=== PATIENT | female | born 1970 | race Caucasian/White ===

== ENCOUNTER 2017-01-14 11:33 | Day surgery (SDC) | payer OTHER ==
[~2017-01-14] VITALS: Ht 149.9 cm; Wt 113.6 kg
[2017-01-14] MEDS ORDERED: ZIAC 10-6.25 MG1 TAB PO (15:51)
[2017-01-14] MEDS ORDERED: DEXILANT60 MG PO (15:51)
[2017-01-14] MEDS ORDERED: CYMBALTA60 MG PO (15:52)
[2017-01-14] MEDS ORDERED: ESTRACE1 MG PO (15:52)
[2017-01-14 16:04] VITALS: BP 186/92; Ht 149.9 cm; Wt 113.6 kg
[2017-01-14 16:29] LABS: BASOPHILS 0.1 % (0-2); HEMATOCRIT 34.8 % (36.0-48.0); HEMOGLOBIN 11.4 g/dL (12-16); IMMATURE GRANULOCYTES 0.3 % (0-5); LYMPHOCYTES 34.6 % (15-50); MCH 27.7 pg (26.0-34.0); MCHC 32.8 g/dL (31.0-37.0); MCV 84.7 fL (80.0-100.0); MONOCYTES 5.4 % (2-11); NEUTROPHILS 56.6 % (40-80); PLATELET COUNT 250 10x3/uL (130-400); RBC 4.11 10x6/uL (4.00-5.40); WBC 7.4 10x3/uL (4.8-10.8)
[2017-01-14 16:39] LABS: CALC OSMOLALITY 279 mosm/kg (275-300); CARBON DIOXIDE 29.8 mmol/L (21.0-32.0); CHLORIDE - SERUM 104 mmol/L (98-107); CREATININE - SERUM 0.6 mg/dL (0.6-1.3); GLUCOSE 81 mg/dL (74-106); POTASSIUM - SERUM 4.1 mmol/L (3.5-5.1); SODIUM 142 mmol/L (136-145); UREA NITROGEN 8 mg/dL (7-18); eGFR NON AFRICAN AMERICAN > 90 mL/min (90-120)
[2017-01-14] MEDS ORDERED: MOBIC7.5 MG PO (17:25)
--- NOTE | 2017-01-14 18:45 | NUR ---
RIGHT HAND PIV DC'D WITH TIP INTACT, PATIENT DRESSING IN PERSONAL CLOTHING
--- NOTE | 2017-01-14 18:55 | NUR ---
DISCHARGE INSTRUCTIONS REVIEWED WITH PATIENT AND SPOUSE, PATIENT DISCHARGED HOME VIA WHEELCHAIR TO PRIVATE VEHICLE WITH SPOUSE
--- NOTE | 2017-01-16 15:58 | OP ---
PATIENT NAME: DUSTIN GARCIA MEDICAL RECORD: [id number] :68 LOCATION:[facility] ADMISSION DATE: SURGEON: LEON HALE DO DATE OF OPERATION: 01/14/2017 DATE OF PROCEDURE: 01/14/2017. PROCEDURE: Colonoscopy. INDICATIONS: Hematochezia and rectal pain. SCOPE: Olympus video pediatric colonoscope. MEDICATIONS: Propofol 350 mg IV per anesthesia. ESTIMATED BLOOD LOSS: None. COMPLICATIONS: None. WITHDRAWAL TIME: 6 minutes. FINDINGS: Informed consent was given. The patient was made comfortable with the above medication. After reaching an adequate level of sedation by slow IV push, the patient was placed on her left side. A digital rectal examination was performed, and was normal. The endoscope was then advanced under direct visualization through the anus to the terminal ileum. The scope was slowly withdrawn and mucosa was carefully examined. There was evidence of moderate diverticulosis involving the entire colon. Retroflexion was performed in the rectum. She did have evidence of small nonbleeding internal hemorrhoids without bleeding stigmata. The scope was then withdrawn from the patient. The patient tolerated the procedure well and there were no complications. IMPRESSIONS: 1. Small nonbleeding internal hemorrhoids, likely the source of the intermittent hematochezia. 2. Moderate diverticulosis. PLAN AND RECOMMENDATIONS: 1. Discharge home when recovery parameters are met. 2. High fiber diet. 3. Continue current medications. 4. Consider supplementation of diet with Metamucil 1-2 tablespoons daily. 5. Consider suppositories b.i.d. for current hemorrhoids and pain and intermittent use periodically as needed. 6. Recall colonoscopy in 5 years. TRANSINT:[id number] Voice Confirmation ID: [id number] DOCUMENT ID: [id number] OPERATIVE REPORT [id number] DUSTIN GARCIA LEON HALE DO at 1558 CC: [id number] DICTATION DATE: 01/14/17 175 [employer]NAGER [employer]: 01/15/17 0149 [facility] 01/14/17 [facility] [address] [place] [address]
== END 2017-01-14 18:55 | disposition home or self-care (01) ==
LOC: D.OPS 11:33
PROVIDERS: Anesthesiology
DX: K62.89 Other specified diseases of anus and rectum (principal); K92.1 Melena; I10 Essential (primary) hypertension; Z01.812 Encounter for preprocedural laboratory examination